=== PATIENT | female | born 2000 | race American Indian/Alaskan Native ===

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

== ENCOUNTER 2021-02-23 08:36 | Emergency (ER) | payer OTHER ==
[~2021-02-23] VITALS: Ht 157.5 cm; Wt 66.2 kg
[2021-02-23 08:45] VITALS: TEMP 97.9
[2021-02-23 09:55] LABS: PLATELET COUNT 315 K/uL (152-353); POTASSIUM 3.7 mmol/L (3.6-5.2)
[2021-02-23 10:54] VITALS: BP 116/769
== END 2021-02-23 10:56 | disposition home or self-care (01) ==
LOC: ED 08:36
PROVIDERS: Family Medicine
DX: N61.0 Mastitis without abscess (principal)
CPT/HCPCS: 80053; 81000; 81025; 85027; 99283

== ENCOUNTER 2021-04-22 21:50 | Emergency (ER) | payer OTHER ==
[~2021-04-22] VITALS: Ht 157.5 cm; Wt 63.5 kg
[2021-04-22 23:55] VITALS: BP 110/62; TEMP 98.9
== END 2021-04-22 23:55 | disposition home or self-care (01) ==
LOC: ED 21:50
DX: F41.8 Other specified anxiety disorders (principal); Z87.898 Personal history of other specified conditions
CPT/HCPCS: 80307; 99283

== ENCOUNTER 2021-07-20 14:43 | Outpatient (CLI) | payer OTHER | END 2021-07-20 19:15 | disposition home or self-care (01) | LOC: US 14:43 | PROVIDERS: ATTEND Nurse Practitioner Family | DX: N83.209 Unspecified ovarian cyst, unspecified side (principal) ==

== ENCOUNTER 2021-08-17 08:01 | Outpatient (CLI) | payer OTHER | END 2021-08-17 20:02 | disposition home or self-care (01) | LOC: US 08:01 | PROVIDERS: ATTEND Nurse Practitioner Family | DX: E04.1 Nontoxic single thyroid nodule (principal) ==

== ENCOUNTER 2022-06-22 13:30 | Outpatient (CLI) | payer OTHER | END 2022-06-22 19:00 | disposition home or self-care (01) | LOC: RAD 13:30 | PROVIDERS: ATTEND Nurse Practitioner Primary Care | DX: M54.59 Other low back pain (principal) ==

== ENCOUNTER 2022-09-23 09:58 | Observation (INO) | payer OTHER ==
[~2022-09-23] VITALS: Ht 154.9 cm; Wt 75.7 kg
[2022-09-23 10:00] VITALS: BP 130/81; TEMP 98.5
[2022-09-23 10:33] LABS: PLATELET COUNT 369 K/uL (152-353)
[2022-09-23 10:42] LABS: POTASSIUM 3.9 mmol/L (3.6-5.2); SODIUM 136 mmol/L (136-145)
[2022-09-23 10:46] LABS: PARTIAL THROMBOPLASTIN TIME 29.8 SECONDS (24.5-33.6)
[2022-09-23 10:50] VITALS: BP 111/60
[2022-09-23 10:55] VITALS: BP 120/67
[2022-09-23 11:00] VITALS: BP 111/71
[2022-09-23 12:15] VITALS: BP 116/74
[2022-09-23 12:55] VITALS: BP 124/77; TEMP 98.1; Ht 154.9 cm; Wt 75.7 kg
[2022-09-23] MEDS ORDERED: PAIN RELIEF EX500 MG PO (13:52)
[2022-09-23] MEDS ORDERED: [UNRECOGNIZED DRUG - OTHER] PO (13:53)
[2022-09-23] MEDS ORDERED: IBUPROFEN 200200 MG PO (13:53)
== END 2022-09-23 17:15 | disposition home or self-care (01) ==
LOC: ED 09:58 → MED/SURG 11:04
PROVIDERS: Family Medicine; ADMIT Internal Medicine; ATTEND Internal Medicine
DX: R07.89 Other chest pain (principal); E28.2 Polycystic ovarian syndrome; R06.02 Shortness of breath; R55 Syncope and collapse; K21.9 Gastro-esophageal reflux disease without esophagitis; F41.8 Other specified anxiety disorders
CPT/HCPCS: 36415; 80053; 81002; 81025; 82550; 84484; 85027; 85610; 85730; 87635; 93005; 96360; 96372; 99220; 99283; G0378; J1650; J1885; U0003

== ENCOUNTER 2022-12-30 10:52 | Outpatient (CLI) | payer OTHER ==
[~2022-12-30 10:52] MED LIST changes: +IBUPROFEN 200200 MG PO; +PAIN RELIEF EX500 MG PO; +[UNRECOGNIZED DRUG - OTHER] PO
== END 2022-12-30 19:32 | disposition home or self-care (01) ==
LOC: LABW 10:52
PROVIDERS: ATTEND Nurse Practitioner Primary Care
DX: N91.2 Amenorrhea, unspecified (principal)
CPT/HCPCS: 84702

== ENCOUNTER 2023-04-19 14:38 | Emergency (ER) | payer OTHER ==
[~2023-04-19] VITALS: Ht 157.5 cm; Wt 81.6 kg
[2023-04-19 14:44] VITALS: BP 124/80; TEMP 98
[2023-04-19 15:41] LABS: PLATELET COUNT 336 K/uL (152-353)
== END 2023-04-19 17:27 | disposition home or self-care (01) ==
LOC: ED 14:38
PROVIDERS: Family Medicine
DX: N39.0 Urinary tract infection, site not specified (principal); R31.9 Hematuria, unspecified
CPT/HCPCS: 80053; 81000; 81025; 85027; 87086; 87088; 96372; 99283; J1885